=== PATIENT | male | born 1985 | race Asian ===

== ENCOUNTER 2016-11-14 12:53 | Emergency (ER) | payer OTHER ==
[~2016-11-14] VITALS: Ht 177.8 cm; Wt 110.1 kg
[~2016-11-14 12:53] MED LIST: FAMO20TA7 PO; HYDR-3138 PO; IBUP800T PO; ONDA4TAB7 PO; melatonin
[2016-11-14 13:05] VITALS: BP 138/84
[2016-11-14] MEDS ORDERED: DEXAMETHASONE 4 MG/ML, 1ML PO ONE (13:30)
[2016-11-14] MEDS ORDERED: DEXAMETHASONE 4 MG/ML, 5ML ONE (13:41)
== END 2016-11-14 13:54 | disposition home or self-care (01) ==
LOC: ED 13:46
DX: J02.0 Streptococcal pharyngitis (principal)
CPT/HCPCS: 99282; J1100

== ENCOUNTER 2017-02-23 14:23 | Emergency (ER) | payer OTHER ==
[~2017-02-23] VITALS: Ht 177.8 cm; Wt 114.6 kg
[~2017-02-23 14:23] MED LIST changes: -HYDR-3138 PO; +HYDR-3237 PO; +IBUP-1223 PO; -IBUP800T PO
[2017-02-23 14:28] VITALS: BP 142/82
== END 2017-02-23 15:14 | disposition home or self-care (01) ==
LOC: ED 15:00
DX: L29.9 Pruritus, unspecified (principal)
CPT/HCPCS: 99283

== ENCOUNTER 2017-12-10 08:02 | Emergency (ER) | payer OTHER ==
[~2017-12-10] VITALS: Ht 177.8 cm; Wt 111.9 kg
[2017-12-10] MEDS ORDERED: MULT-6 PO (08:22)
[2017-12-10] MEDS ORDERED: FAMOTIDINE 20 MG TABLET ONE (08:51)
[2017-12-10] MEDS ORDERED: ONDANSETRON ODT 4 MG ONE (08:51)
[2017-12-10] MEDS ORDERED: MAALOX/HYOSCYAMINE/LIDOCAINE 45 ML BTL ONE (08:52)
[2017-12-10] MEDS ORDERED: FAMOTIDINE 20 MG TABLET PO ONE (09:00)
[2017-12-10] MEDS ORDERED: ONDANSETRON ODT 4 MG PO ONE (09:00)
[2017-12-10] MEDS ORDERED: MAALOX/HYOSCYAMINE/LIDOCAINE 45 ML BTL PO ONE (09:00)
[2017-12-10 09:07] LABS: BASOPHILS # (AUTO) 0.01 x10^3/uL (0-0.1); BASOPHILS % (AUTO) 0 % (0-1); EOSINOPHILS # (AUTO) 0.06 x10^3/uL (0-0.4); EOSINOPHILS % (AUTO) 1 % (1-7); LYMPHOCYTES # (AUTO) 1.16 x10^3/uL (1-3.4); LYMPHOCYTES % (AUTO) 19 % (22-44); MD NO; MEAN CORPUSCULAR HEMOGLOBIN 28.3 pg (27.5-34.5); MEAN CORPUSCULAR HGB CONC 33.9 g/dL (33.2-36.2); MEAN CORPUSCULAR VOLUME 83.5 fL (81-97); MEAN PLATELET VOLUME 8.8 fL (7.4-10.4); MONOCYTES # (AUTO) 0.42 x10^3/uL (0.2-0.8); MONOCYTES % (AUTO) 7 % (2-9); NEUTROPHILS # (AUTO) 4.32 x10^3/uL (1.8-6.8); NEUTROPHILS % (AUTO) 72 % (42-75); PLATELET COUNT 239 x10^3/uL (130-400); RED BLOOD COUNT 4.87 x10^6/uL (4.38-5.82); RED CELL DISTRIBUTION WIDTH 13.9 % (9.4-14.8)
[2017-12-10 09:44] LABS: MICROSCOPIC NOT IND
[2017-12-10 10:03] LABS: CULTURE INDICATED? NO
[2017-12-10 10:19] LABS: ALANINE AMINOTRANSFERASE 60 U/L (12-78); ALBUMIN 3.6 g/dL (3.4-5.0); ANION GAP 6 mmol/L (5-15); CALCIUM 8.7 mg/dL (8.5-10.1); CHLORIDE 108 mmol/L (98-107); CHOLESTEROL, TOTAL 226 mg/dL (140-239); CREATININE 1.05 mg/dL (0.7-1.3)
[2017-12-10 10:22] LABS: ALKALINE PHOSPHATASE 97 U/L (45-117); BILIRUBIN,TOTAL 0.5 mg/dL (0.2-1.0); CHOL/HDL RATIO 5.3; HDL CHOL % 19 % (26-37); HDL CHOLESTEROL (DIRECT) 43 mg/dL (40-60); LDL CHOLESTEROL,CALCULATED 134 mg/dL (54-169); LDL/HDL RATIO 3.1 (0.5-3.0); TRIGLYCERIDES 244 mg/dL (50-200); VLDL CHOLESTEROL 49 mg/dL (0-25)
[2017-12-10 11:04] VITALS: BP 108/64
== END 2017-12-10 11:19 | disposition home or self-care (01) ==
LOC: ED 09:06
DX: K52.9 Noninfective gastroenteritis and colitis, unspecified (principal)
CPT/HCPCS: 36415; 80053; 80061; 81003; 85025; 99284; Q0162

== ENCOUNTER 2018-01-10 08:45 | Day surgery (SDC) | payer OTHER ==
[2018-01-09 12:49] LABS: BASOPHILS # (AUTO) 0.03 x10^3/uL (0-0.1); BASOPHILS % (AUTO) 0 % (0-1); EOSINOPHILS % (AUTO) 1 % (1-7); LYMPHOCYTES # (AUTO) 1.71 x10^3/uL (1-3.4); LYMPHOCYTES % (AUTO) 19 % (22-44); MD NO; MEAN CORPUSCULAR HEMOGLOBIN 28.7 pg (27.5-34.5); MEAN CORPUSCULAR VOLUME 84.5 fL (81-97); MEAN PLATELET VOLUME 9.1 fL (7.4-10.4); MONOCYTES # (AUTO) 0.58 x10^3/uL (0.2-0.8); MONOCYTES % (AUTO) 6 % (2-9); NEUTROPHILS # (AUTO) 6.56 x10^3/uL (1.8-6.8); NEUTROPHILS % (AUTO) 73 % (42-75); PLATELET COUNT 250 x10^3/uL (130-400); RED BLOOD COUNT 5.52 x10^6/uL (4.38-5.82); RED CELL DISTRIBUTION WIDTH 14.4 % (9.4-14.8)
[2018-01-09 12:58] LABS: ALBUMIN 4.2 g/dL (3.4-5.0); ANION GAP 8 mmol/L (5-15); CALCIUM 10.4 mg/dL (8.5-10.1); CHLORIDE 105 mmol/L (98-107)
[2018-01-09 13:02] LABS: ALANINE AMINOTRANSFERASE 58 U/L (12-78); ALKALINE PHOSPHATASE 106 U/L (45-117); BILIRUBIN,TOTAL 0.6 mg/dL (0.2-1.0); CREATININE 1.46 mg/dL (0.7-1.3); TOTAL PROTEIN 8.6 g/dL (6.4-8.2)
[~2018-01-10] VITALS: Ht 177.8 cm; Wt 111.3 kg
[~2018-01-10 08:45] MED LIST changes: +BUPIVACAINE/PF 0.5% ONE; +IBUP200C8 PO; +MULT-6 PO
[2018-01-10] MEDS ORDERED: LACTATED RINGERS 1,000 ML IV SCH (09:12)
[2018-01-10 09:31] VITALS: BP 125/78
[2018-01-10] MEDS ORDERED: FENTANYL PF 250 MCG/5ML ONE (10:58)
[2018-01-10] MEDS ORDERED: MIDAZOLAM 1 MG/ML, 2ML ONE (10:58)
[2018-01-10] MEDS ORDERED: GABAPENTIN 300 MG CAPSULE ONE (10:59)
[2018-01-10] MEDS ORDERED: ACETAMINOPHEN 500 MG TABLET ONE (10:59)
[2018-01-10] MEDS ORDERED: ROCURONIUM 10MG/ML,5ML ONE (11:06)
[2018-01-10] MEDS ORDERED: DEXAMETHASONE 4 MG/ML, 1ML ONE ×2 (11:07→11:08)
[2018-01-10] MEDS ORDERED: LIDOCAINE-MPF 2% ,5ML ONE (11:07)
[2018-01-10] MEDS ORDERED: NEOSTIGMINE 1 MG/ML, 10ML ONE (11:07)
[2018-01-10] MEDS ORDERED: GLYCOPYRROLATE 0.2MG/1ML, 5ML ONE (11:07)
[2018-01-10] MEDS ORDERED: PROPOFOL 10 MG/ML, 20ML ONE (11:07)
[2018-01-10] MEDS ORDERED: CEFOTETAN PMX 2GM/50ML 50 ML ONE (11:08)
[2018-01-10] MEDS ORDERED: ONDANSETRON 2MG/ML, 2ML ONE ×2 (11:21)
[2018-01-10] MEDS ORDERED: KETOROLAC 30 MG/1 ML ONE (11:21)
[2018-01-10] MEDS ORDERED: BUPIVACAINE/PF 0.5% INFIL ONE (11:24)
[2018-01-10] MEDS ORDERED: FENTANYL PF 100 MCG/2ML ONE ×2 (11:47→12:03)
[2018-01-10] MEDS ORDERED: HALOPERIDOL 5 MG/ML ONE (11:55)
[2018-01-10] MEDS ORDERED: MEPERIDINE/PF 25MG/0.5ML IVPush PRN (12:00)
[2018-01-10] MEDS ORDERED: LABETALOL 5MG/ML, 20ML IV PRN (12:00)
[2018-01-10] MEDS ORDERED: HALOPERIDOL 5 MG/ML IV PRN (12:00)
[2018-01-10] MEDS ORDERED: hydrALAzine 20 MG/ML, 1ML IV PRN (12:00)
[2018-01-10] MEDS ORDERED: PROMETHAZINE 25 MG/ML, 1ML IV PRN (12:00)
[2018-01-10] MEDS ORDERED: FENTANYL PF 100 MCG/2ML IV PRN (12:00)
[2018-01-10] MEDS ORDERED: HYDROmorphone 2 MG/ML, 1ML IV PRN (12:00)
[2018-01-10] MEDS ORDERED: OXYcodone 5 MG/5 ML ORAL.SOL UDC ONE (12:03)
[2018-01-10] MEDS: OXYcodone 5 MG/5 ML ORAL.SOL UDC PO PRN ×2 (12:05→17:55)
== END 2018-01-10 18:00 | disposition home or self-care (01) ==
LOC: OUT 08:45
PROVIDERS: ATTEND Surgery
DX: K80.10 Calculus of gallbladder with chronic cholecystitis without obstruction (principal); Z98.890 Other specified postprocedural states; Z79.899 Other long term (current) drug therapy; Z87.891 Personal history of nicotine dependence; Z88.1 Allergy status to other antibiotic agents; Z87.19 Personal history of other diseases of the digestive system
CPT/HCPCS: 36415; 47562; 80053; 85025; 88304; J1100; J1885; J2250; J2405; J2704; J2710; J3010; J3490; J7120; S0074

== ENCOUNTER 2018-10-24 19:26 | Emergency (ER) | payer OTHER ==
[~2018-10-24] VITALS: Ht 177.8 cm; Wt 117.2 kg
[~2018-10-24 19:26] MED LIST changes: -BUPIVACAINE/PF 0.5% ONE
--- NOTE | 2018-10-24 19:39 | NUR ---
PT AWARE TO PLEASE REMAIN NPO AT THIS TIME, AWARE ALSO OF WAIT PRIOR TO ROOMING, FARHAN LI
[2018-10-24] MEDS ORDERED: SODIUM CHLORIDE FLUSH 10ML SYR IVF ONE (20:00)
--- NOTE | 2018-10-24 21:18 | NUR ---
PT TO ROOM FROM LOBBY
[2018-10-24 21:33] LABS: BASOPHILS # (AUTO) 0.04 x10^3/uL (0-0.1); BASOPHILS % (AUTO) 1 % (0-1); EOSINOPHILS # (AUTO) 0.09 x10^3/uL (0-0.4); EOSINOPHILS % (AUTO) 1 % (1-7); LYMPHOCYTES # (AUTO) 1.89 x10^3/uL (1-3.4); LYMPHOCYTES % (AUTO) 24 % (22-44); MD NO; MEAN CORPUSCULAR HEMOGLOBIN 29.3 pg (27.5-34.5); MEAN CORPUSCULAR HGB CONC 34.1 g/dL (33.2-36.2); MEAN CORPUSCULAR VOLUME 85.9 fL (81-97); MEAN PLATELET VOLUME 9.1 fL (7.4-10.4); MONOCYTES # (AUTO) 0.53 x10^3/uL (0.2-0.8); MONOCYTES % (AUTO) 7 % (2-9); NEUTROPHILS # (AUTO) 5.26 x10^3/uL (1.8-6.8); NEUTROPHILS % (AUTO) 67 % (42-75); PLATELET COUNT 232 x10^3/uL (130-400); RED BLOOD COUNT 5.22 x10^6/uL (4.38-5.82); RED CELL DISTRIBUTION WIDTH 14.5 % (9.4-14.8)
--- NOTE | 2018-10-24 21:44 | NUR ---
HERACLIO Phan at bedside.
[2018-10-24 22:03] LABS: ALANINE AMINOTRANSFERASE 76 U/L (12-78); ANION GAP 4 mmol/L (5-15); CALCIUM 9.4 mg/dL (8.5-10.1); CHLORIDE 108 mmol/L (98-107); CREATININE 1.28 mg/dL (0.7-1.3)
[2018-10-24 22:05] LABS: ALKALINE PHOSPHATASE 82 U/L (45-117); BILIRUBIN,TOTAL 0.5 mg/dL (0.2-1.0); TOTAL PROTEIN 7.5 g/dL (6.4-8.2)
--- NOTE | 2018-10-24 22:17 | NUR ---
PT PRESENTS TO ED WITH C/O RIGHT UPPER QUAD PAIN AND NAUSEA X 1 WEEK. PT DENIES DIARRHEA. BP AND SPO2 MONITORS IN PLACE. CALL LIGHT IN REACH. URINE COLLECTED AND SENT. AWAITING UA AND DISPO.
[2018-10-24 22:34] LABS: MICROSCOPIC NOT IND
--- NOTE | 2018-10-24 22:53 | NUR ---
Note undone in EDM - 10/24/18 at 2256 by VIN pt straight cath'd sterile technique maintained. urine sample walked to lab. pt tolerated well. parents at bedside. no subsequent seizure activity noted since ativan admin. HERACLIO Heredia notified bp 90/44 at this time, HR 60's sinus rhythm with no ectopy. pt sleeping, resps even and unlabored. awaiting ua results and dispo. no orders received from
--- NOTE | 2018-10-24 22:56 | NUR ---
note undone, charted on wrong pt.
[2018-10-24 23:02] LABS: CULTURE INDICATED? NO
--- NOTE | 2018-10-24 23:40 | NUR ---
PT RESTING ON GURERVIN, PT A&O, RESPS EVEN AND UNLABORED. PT DENIES PAIN AT THIS TIME. AWAITING CT RESULTS AND DISPO.
--- NOTE | 2018-10-24 23:55 | NUR ---
report given to RN Norman at bedside.
[2018-10-25 00:17] VITALS: BP 11/63
== END 2018-10-25 00:32 | disposition home or self-care (01) ==
LOC: ED 21:34
DX: R10.11 Right upper quadrant pain (principal); R10.33 Periumbilical pain; Z87.891 Personal history of nicotine dependence
CPT/HCPCS: 36415; 74022; 74176; 80053; 81003; 83690; 85025; 99284